=== PATIENT | male | born 1955 | race Two or more races ===

== ENCOUNTER 2020-01-06 22:00 | Emergency (ER) | payer SELFPAY ==
[~2020-01-06] VITALS: Ht 185.4 cm; Wt 99.8 kg
--- NOTE | 2020-01-06 22:15 | NUR ---
BIB SON FOR C/O L RIB PAIN S/P TRIP AND FALL ABOUT 2 HRS [employer]IDENTIAL [employer]. PT W/ CHRONIC L KNEE PAIN AND L LOWER BACK PAIN W/ SURGERIS. PT WAS TRANSFERRED TO BED 1. GOWNED UP. VSS. WILL CONT TO MONITOR ,
--- NOTE | 2020-01-06 22:18 | NUR ---
DR AGOSTO AT BED SIDE
[2020-01-06] MEDS ORDERED: MORPHINE SULFATE INJ 2 MG/ML DISP.SYRIN IM ONE (22:30)
[2020-01-06] MEDS ORDERED: KETOROLAC TROMETHAMINE INJ 60 MG/2 ML VIAL IM ONE (22:30)
[2020-01-06] MEDS ORDERED: MORPHINE SULFATE INJ 4 MG/ML DISP.SYRIN ONE (22:53)
[2020-01-06] MEDS ORDERED: KETOROLAC TROMETHAMINE INJ 30 MG/ML VIAL ONE (22:53)
--- NOTE | 2020-01-06 23:03 | NUR ---
DR AGOSTO AT BED SIDE
--- NOTE | 2020-01-06 23:27 | NUR ---
PT MEDICALLY STABLE FOR D/C. Patient discharged to home in stable condition. Written and verbal after care instructions given. Patient verbalizes understanding of instruction. son will provide ride
[2020-01-06 23:28] VITALS: BP 152/97
== END 2020-01-06 23:29 | disposition home or self-care (01) ==
LOC: ER 22:02
DX: S22.32XA Fracture of one rib, left side, initial encounter for closed fracture (principal); Z98.890 Other specified postprocedural states; W01.0XXA Fall on same level from slipping, tripping and stumbling without subsequent striking against object, initial encounter; Y93.89 Activity, other specified; Y92.89 Other specified places as the place of occurrence of the external cause; Y99.8 Other external cause status
CPT/HCPCS: 71100; 96372 ×2; 99284; J1885; J2270

== ENCOUNTER 2020-07-15 23:10 | Emergency (ER) | payer OTHER ==
[~2020-07-15] VITALS: Ht 177.8 cm; Wt 77.1 kg
[2020-07-15 23:50] VITALS: BP 139/91
[2020-07-16] MEDS ORDERED: MORPHINE SULFATE INJ 4 MG/ML DISP.SYRIN ONE (00:11)
[2020-07-16] MEDS ORDERED: KETOROLAC TROMETHAMINE INJ 60 MG/2 ML VIAL IM ONE ×2 (00:11→00:30)
[2020-07-16] MEDS ORDERED: OXYC-133 PO (00:27)
[2020-07-16] MEDS ORDERED: MORPHINE SULFATE INJ 4 MG/ML DISP.SYRIN IM ONE (00:30)
== END 2020-07-16 00:39 | disposition home or self-care (01) ==
LOC: ER 23:12
DX: M54.5 Low back pain (principal); Z98.890 Other specified postprocedural states; W01.0XXA Fall on same level from slipping, tripping and stumbling without subsequent striking against object, initial encounter; Y93.89 Activity, other specified; Y92.89 Other specified places as the place of occurrence of the external cause; Y99.8 Other external cause status
CPT/HCPCS: 72100; 96372 ×2; 99284; J1885; J2270

== ENCOUNTER 2025-03-02 13:06 | Emergency (ER) | payer MEDICARE, OTHER ==
[~2025-03-02] VITALS: Ht 172.7 cm; Wt 99.8 kg
[~2025-03-02 13:06] MED LIST: OXYC-133 PO
[2025-03-02 14:41] VITALS: BP 139/74; TEMP 98.3
[2025-03-02] MEDS ORDERED: IBUP-1490 PO (17:03)
[2025-03-02] MEDS ORDERED: IBUPROFEN 600 MG TABLET ONE (17:06)
[2025-03-02] MEDS ORDERED: TDAP [DIPH/PERTUSSIS/TET] 0.5 ML VIAL IM ONE (17:06)
[2025-03-02] MEDS: TDAP [DIPH/PERTUSSIS/TET] 0.5 ML VIAL IM ONE (17:10)
[2025-03-02] MEDS: IBUPROFEN 600 MG TABLET PO ONE (17:10)
[2025-03-02 17:13] VITALS: O2SAT 95
== END 2025-03-02 17:14 | disposition home or self-care (01) ==
LOC: ER 13:15
DX: S20.212A Contusion of left front wall of thorax, initial encounter (principal); W19.XXXA Unspecified fall, initial encounter; Y93.89 Activity, other specified; Y92.89 Other specified places as the place of occurrence of the external cause; Y99.8 Other external cause status
CPT/HCPCS: 71100-TC; 90715